=== PATIENT | female | born 1945 | race Caucasian/White ===

== ENCOUNTER 2022-05-31 09:11 | Emergency (ER) | payer OTHER ==
[~2022-05-31] VITALS: Ht 170.2 cm; Wt 68.2 kg
[2022-05-31] MEDS ORDERED: HYDROcodone/acetaminophen 5mg/325mg tablet PO ONE ×2 (10:30→12:35)
[2022-05-31] MEDS ORDERED: propofol 10mg/ml 20ml vial IV ONE ×3 (13:35→17:13)
[2022-05-31] MEDS ORDERED: morphine 2 MG/ML inj. syringe IV ONE (14:30)
[2022-05-31] MEDS ORDERED: fentaNYL/PF 50MCG/1 ML 2ML syringe IV ONE (15:50)
[2022-05-31] MEDS ORDERED: HYDR-3972 PO (17:39)
--- NOTE | 2022-05-31 18:04 | NUR ---
Wasted propofol 50 mg with Susi CR.
[2022-05-31 18:23] VITALS: BP 144/76
[2022-06-07] MEDS ORDERED: FLUO10TA34 PO (12:56)
[2022-06-07] MEDS ORDERED: TRAM50TA2 PO (12:56)
[2022-06-07] MEDS ORDERED: CELE100C98 PO (12:56)
== END 2022-05-31 18:25 | disposition home or self-care (01) ==
LOC: ER 09:12
DX: S52.591A Other fractures of lower end of right radius, initial encounter for closed fracture (principal); W18.39XA Other fall on same level, initial encounter; Y93.89 Activity, other specified; Y92.89 Other specified places as the place of occurrence of the external cause; Y99.8 Other external cause status
CPT/HCPCS: 25605; 73030; 73070; 73100; 73110; 96374; 96375; 99152; 99285; J2270; J2704; J3010; A4565

== ENCOUNTER 2022-06-01 12:27 | Emergency (ER) | payer OTHER ==
[~2022-06-01] VITALS: Ht 170.2 cm; Wt 65.2 kg
[~2022-06-01 12:27] MED LIST: HYDR-3972 PO
[2022-06-01 12:44] VITALS: BP 137/46
== END 2022-06-01 14:24 | disposition home or self-care (01) ==
LOC: ER 12:27
DX: S52.501D Unspecified fracture of the lower end of right radius, subsequent encounter for closed fracture with routine healing (principal); Z88.5 Allergy status to narcotic agent; Z88.8 Allergy status to other drugs, medicaments and biological substances; Z88.0 Allergy status to penicillin; Z91.013 Allergy to seafood; W01.0XXD Fall on same level from slipping, tripping and stumbling without subsequent striking against object, subsequent encounter
CPT/HCPCS: 99281; 99282

== ENCOUNTER 2022-06-08 10:44 | Day surgery (SDC) | payer OTHER ==
[2022-06-08] VITALS (13 sets, daily range): BP systolic 100–159; BP diastolic 46–81
[~2022-06-08] VITALS: Ht 170.2 cm; Wt 69.6 kg
[~2022-06-08 10:44] MED LIST changes: +CELE100C98 PO; +FLUO10TA34 PO; -HYDR-3972 PO; +TRAM50TA2 PO
[2022-06-08 12:18] LABS: BASOPHILS % (AUTO) 0.8 % (0-1); EOSINOPHILS % (AUTO) 0.8 % (0-6); LYMPHOCYTES # (AUTO) 1.3 X10'3 (1.1-4.8); LYMPHOCYTES % (AUTO) 24.4 % (21-51); MEAN CORPUSCULAR HGB CONC 33.4 g/dL (33.0-36.5); MEAN CORPUSCULAR VOLUME 95.9 FL (78-98); MEAN PLATELET VOLUME 7.3 FL (7.4-10.4); MONOCYTES # (AUTO) 0.7 X10'3 (0-0.9); MONOCYTES % (AUTO) 12.7 % (2-12); NEUTROPHILS # (AUTO) 3.4 X10'3 (1.8-7.7); NEUTROPHILS % (AUTO) 61.3 % (42-75); PRE OP HEMATOCRIT 39.1 % (35.0-45.0); PRE OP HEMOGLOBIN 13.1 g/dL (12.0-16.0); PRE OP PLATELET COUNT 289 X10'3 (140-440); RED BLOOD COUNT 4.08 X10'6 (4.20-5.60); RED CELL DISTRIBUTION WIDTH 12.8 % (11.5-14.5)
[2022-06-08 12:34] LABS: ALBUMIN 3.6 G/DL (3.4-5.0); ALBUMIN/GLOBULIN RATIO 0.9 (1.1-1.5); ALKALINE PHOSPHATASE 99 IU/L (46-116); BLOOD UREA NITROGEN 18 MG/DL (7-18); BUN/CREATININE RATIO 25.4 (10.0-20.0); CALCIUM 9.4 MG/DL (8.5-10.1); CHLORIDE 103 MMOL/L (99-107); CREATININE 0.71 MG/DL (0.40-0.90); PRE OP ALT 13 U/L (30-65); PRE OP ANION GAP 11 (8-16); PRE OP AST 30 U/L (10-37); PRE OP BILIRUB, TOTAL 0.4 MG/DL (0.0-1.0); PRE OP GLUCOSE 86 MG/DL (70-104); PRE OP POTASSIUM 3.9 MMOL/L (3.4-5.1); PRE OP SODIUM 140 MMOL/L (135-145); TOTAL CARBON DIOXIDE 26.2 MMOL/L (24-32); TOTAL PROTEIN 7.4 G/DL (6.4-8.2); eGFR 80 ML/MIN
[2022-06-08] MEDS ORDERED: fentaNYL/PF 50MCG/1 ML 2ML syringe IV PRN ×2 (13:15)
[2022-06-08] MEDS ORDERED: ondansetron/PF 4mg/2ml inj IV PRN (13:15)
[2022-06-08] MEDS ORDERED: hydrALAZINE 20mg/ml inj. IV PRN (13:15)
[2022-06-08] MEDS ORDERED: ringers solution, lacted 1,000 ML IV SCH (13:15)
[2022-06-08] MEDS ORDERED: labetalol 20mg/4ml (5mg/ml) syringe IV PRN (13:15)
[2022-06-08] MEDS ORDERED: morphine 2 MG/ML inj. syringe IV PRN (13:15)
[2022-06-08] MEDS ORDERED: morphine 4 MG/ML inj SYRINge IV PRN (13:15)
[2022-06-08] MEDS ORDERED: fentaNYL/PF 50MCG/1 ML 2ML syringe ONE (14:27)
[2022-06-08] MEDS ORDERED: midazolam 1 mg/ML 2ml injection ONE (14:27)
[2022-06-08] MEDS ORDERED: propofol inj 20 ML IV ONE (14:29)
[2022-06-08] MEDS ORDERED: ROPIVAcaine 0.5% (5mg/ml) 30ml vial ONE ×2 (14:31)
[2022-06-08] MEDS ORDERED: BUPIVAcaine/PF 2.5mg/ml (0.25%) 10ml vial ONE (14:41)
[2022-06-08] MEDS ORDERED: LIDOcaine 2% (20mg/ml) 5ml vial ONE (14:47)
[2022-06-08] MEDS ORDERED: sevoflurane 250ml liquid IH ONE (14:47)
[2022-06-08] MEDS ORDERED: dexamethasone sod phosphate 10mg/ml inj ONE (14:47)
[2022-06-08] MEDS ORDERED: ondansetron/PF 4mg/2ml inj ONE (15:14)
[2022-06-08] MEDS ORDERED: acetaminophen 1,000mg/100ml IV 100 ML IV ONE (15:51)
--- NOTE | 2022-06-08 16:05 | NUR ---
Received from OR via [facility], accompanied by Anesthesiologist and report given by ASHLEY Anesthesiologist. PATIENT WAKING UP, NO S/S OF PAIN, V/S WNL, 20G TO LEFT FOREARM, DRESSING to RIGHT FOREARM-C/D/I. ICE PACK AND ELEVATED RIGHT UPPER ARM. Addendum: 06/08/22 at 1632 by Rg Gu RN Amended: Links added.
--- NOTE | 2022-06-08 18:25 | NUR ---
ALL DISCHARGE CRITERIA HAS BEEN MET. VSS, PAIN AT A TOLERABLE LEVEL, VOIDING AND ABLE TO SAFELY AMBULATE AND TRANSFER SELF. IV TAKEN OUT WITHOUT ANY COMPLICATIONS. ALL DISCHARGE INSTRUCTIONS COVERED WITH PATIENT AND ALL QUESTIONS ANSWERED. PATIENT TAKEN OUT VIA WHEELCHAIR WITH ALL BELONGINGS TO PERSONAL VEHICLE WHERE FAMILY DROVE PATIENT HOME. Addendum: 06/08/22 at 1833 by Rg Gu RN Amended: Links added.
[2022-06-09] MEDS ORDERED: metoclopramide 5 mg/ml inj IV ONE (05:30)
[2022-06-09] MEDS ORDERED: celeCOXIB 100mg capsule PO ONE ×2 (05:30)
[2022-06-09] MEDS ORDERED: vancomycin/NS 1 GM in NS 250 ML IV ONE (05:30)
[2022-06-09] MEDS ORDERED: tranexamic acid inj. 1,000 MG in normal saline IV soln 100ML IV ONE (05:30)
[2022-06-09] MEDS ORDERED: cefazolin 2gm/D5W 100mL 100 ML IV ONE (05:30)
[2022-06-09] MEDS ORDERED: gabapentin 300mg capsule PO ONE (05:30)
[2022-06-09] MEDS ORDERED: acetaminophen 325mg tablet PO ONE (05:30)
[2022-06-09] MEDS ORDERED: oxyCODONE SR 10mg (sust. release) tab -2 tabs (20mg) PO ONE (05:30)
== END 2022-06-08 18:25 | disposition home or self-care (01) ==
LOC: PAS 10:44
PROVIDERS: ATTEND Orthopaedic Surgery
DX: S52.571A Other intraarticular fracture of lower end of right radius, initial encounter for closed fracture (principal); I95.9 Hypotension, unspecified; F32.A Depression, unspecified; G89.18 Other acute postprocedural pain; Z90.710 Acquired absence of both cervix and uterus; Z98.890 Other specified postprocedural states; Z88.0 Allergy status to penicillin; Z88.5 Allergy status to narcotic agent; Z88.8 Allergy status to other drugs, medicaments and biological substances; Z91.013 Allergy to seafood; Z79.899 Other long term (current) drug therapy; W18.30XA Fall on same level, unspecified, initial encounter; Y93.H2 Activity, gardening and landscaping; Y92.89 Other specified places as the place of occurrence of the external cause; Y99.8 Other external cause status
CPT/HCPCS: 25609; 36415; 64417; 71045; 73100; 80053; 85025; 86885; 86900; 86901; 93005; A6222; C1713; J0131; J1100; J2250; J2405; J2704; J2765; J2795; J3010; J3370; J3490; J7030; J7120; Z7506; Z7508; Z7512; 76000; A4565; A4618; A6449; A7000